=== PATIENT | male | born 1970 | race Caucasian/White ===

== ENCOUNTER 2025-03-27 09:52 | Outpatient (CLI) | payer MEDICAID ==
--- NOTE | 2025-03-27 10:56 | RADIOLOGY REPORT ---
EXAM: DI HAND, COMPLETE (3VW MIN) CLINICAL INDICATION: CONTRACTURE OF RIGHT HAND TECHNIQUE: DI HAND, COMPLETE (3VW MIN) Comparison: None FINDINGS/IMPRESSION: There is no evidence of acute fracture or dislocation. The alignment is anatomical. There is no radiopaque foreign body.
== END 2025-03-27 23:59 | disposition home or self-care (01) ==
LOC: RAD 09:52
PROVIDERS: ATTEND Nurse Practitioner Family
DX: M24.541 Contracture, right hand (principal)
CPT/HCPCS: 73130